=== PATIENT | male | born 1935 | race Caucasian/White ===

== ENCOUNTER 2018-05-01 10:08 | Outpatient (CLI) | payer MEDICARE, BC ==
--- NOTE | 2018-05-01 11:37 | RAD ---
TWO VIEW CHEST: Comparison: None. Indication: Wheezing. History of tobacco abuse. FINDINGS: Lungs are mildly hyperinflated. There is a borderline sized cardiac silhouette. Vascular calcificatio n is present. No vascular congestion. There is osseous degenerative change. IMPRESSION: COPD. POS: [facility]
== END 2018-05-01 10:09 | disposition home or self-care (01) ==
LOC: BICRAD 10:08
PROVIDERS: ATTEND Family Medicine
DX: R06.2 Wheezing (principal); F17.201 Nicotine dependence, unspecified, in remission; J44.9 Chronic obstructive pulmonary disease, unspecified
CPT/HCPCS: 71046